=== PATIENT | male | born 1985 | race Caucasian/White ===

== ENCOUNTER 2017-04-24 19:43 | Emergency (ER) | payer BC ==
[~2017-04-24] VITALS: Ht 180.3 cm; Wt 101.8 kg
[2017-04-24] MEDS ORDERED: FLEXERIL PO (21:53)
[2017-04-24] MEDS ORDERED: ULTRAM50 M1 PO (21:53)
[2017-04-24 22:05] VITALS: BP 131/79
== END 2017-04-24 22:05 | disposition home or self-care (01) | DRG 552 ==
LOC: ED 19:43
DX: M54.30 Sciatica, unspecified side (principal); M51.37 Other intervertebral disc degeneration, lumbosacral region; S39.012A Strain of muscle, fascia and tendon of lower back, initial encounter; M54.32 Sciatica, left side; X50.0XXA Overexertion from strenuous movement or load, initial encounter; Y93.89 Activity, other specified; Y92.008 Other place in unspecified non-institutional (private) residence as the place of occurrence of the external cause

== ENCOUNTER 2020-12-13 21:44 | Emergency (ER) | payer BC ==
[~2020-12-13] VITALS: Ht 175.3 cm; Wt 100.0 kg
[~2020-12-13 21:44] MED LIST: FLEXERIL PO; ULTRAM50 M1 PO
[2020-12-13] MEDS ORDERED: MOTRIN800 MG PO (22:57)
[2020-12-13] MEDS ORDERED: AMOXICILLIN500 MG PO (22:57)
[2020-12-13 23:46] VITALS: BP 142/63
== END 2020-12-13 23:45 | disposition home or self-care (01) | DRG 563 ==
LOC: ED 21:44
PROC: 0HQFXZZ Repair Right Hand Skin, External Approach (ICD-10-PCS; principal; 2020-12-13)
DX: S62.616B Displaced fracture of proximal phalanx of right little finger, initial encounter for open fracture (principal); W18.40XA Slipping, tripping and stumbling without falling, unspecified, initial encounter; Y93.89 Activity, other specified; Y92.009 Unspecified place in unspecified non-institutional (private) residence as the place of occurrence of the external cause